=== PATIENT | male | born 1965 | race Caucasian/White ===

== ENCOUNTER → 2018-06-03 06:21 | Outpatient (CLI) | payer OTHER, SELFPAY | PROVIDERS: Family Provider Family Medicine; PCP Family Medicine; Visit Provider Family Medicine | DX: S86.011A Strain of right Achilles tendon, initial encounter (principal); X58.XXXA Exposure to other specified factors, initial encounter; Y93.9 Activity, unspecified; Y92.9 Unspecified place or not applicable; Y99.9 Unspecified external cause status | CPT/HCPCS: 73721 ==

== ENCOUNTER → 2019-12-15 12:20 | Outpatient (CLI) | payer OTHER, SELFPAY ==
[2014-10-02 10:40] VITALS: BMI 27.6
--- NOTE | 2019-12-15 12:42 | RAD_ITS ---
STUDY: X-RAY CHEST REASON FOR EXAM: Male, 53 years old. Pre-op for Achilles surgery TECHNIQUE: PA and lateral views of the chest. COMPARISON: None. FINDINGS: The lungs are clear and expanded. There is no demonstrated pleural abnormality. Normal size heart. Normal mediastinum and carolee. Normal visualized pulmonary arteries. Normal visualized aortic arch and descending thoracic aorta. Normal visualized thoracic spine. Normal visualized ribs, clavicles, and shoulders. There is no demonstrated abnormality of the visualized soft tissue structures of the upper abdomen. RAD/Chest PA and Lateral IMPRESSION: Normal x-ray examination of the chest. Electronically Signed: Augie Montalvo MD at 10:50 EST , Service support ,
--- NOTE | 2019-12-15 13:05 | EKG12_ITS ---
Test Reason : PRE-OP Blood Pressure : / mmHG Vent. Rate : 068 BPM Atrial Rate : 068 BPM P-R Int : 150 ms QRS Dur : 082 ms QT Int : 396 ms P-R-T Axes : 032 001 014 degrees QTc Int : 421 ms Normal sinus rhythm Minimal voltage criteria for LVH, may be normal variant Borderline ECG Confirmed by DEBBIE JAMES, SHAHEEN ([id number]), editor at large JENAE MACK ([id number]) on 12/16/2019 1:41:53 PM Referred By: Armando Alcaraz Confirmed By:SHAHEEN LEWIS MD
[2019-12-15 13:11] LABS: Absolute Lymphocyte Count 1.32 X10^3/uL (0.83-4.51); Absolute Neutrophil Count 4.6 X10^3/uL (2.0-7.7); Basophil# 0.06 X10^3/uL; Basophil% 0.9 % (0-1); Eosinophil# 0.08 X10^3/uL; Eosinophils% 1.2 % (0-5); Hematocrit 45.6 % (40-54); Hemoglobin 15.3 g/dL (13.0-16.5); Lymphocyte # 1.32 X10^3/ul (4.0); Lymphocyte % 20.4 % (19-41); Mean Corp Hgb Conc 33.6 g/dL (32-36); Mean Corpuscular Hgb 29.3 pg (27.0-32.0); Mean Corpuscular Volume 87.2 fL (80-94); Mean Platelet Vol. 9.3 fl (6.2-12.0); Monocyte# 0.42 X10^3/uL; Monocyte% 6.5 % (0-10); NRBC Flagged by Analyzer 0 % (0-5); Neutrophil # 4.57 X10^3/uL (2.7-7.7); Neutrophil % 70.8 % (47-70); Platelet Count 252 K/mm3 (150-450); RBC Distribution Width CV 12.4 % (11.6-14.6); RBC Distribution Width SD 39.5 fl (35.1-43.9); Red Blood Count 5.23 M/mm3 (4.6-6.2); White Blood Count 6.5 K/mm3 (4.4-11.0)
[2019-12-15 13:32] LABS: Anion Gap 2 (5-15); BUN 23 mg/dL (7-18); BUN/Creat Ratio 20.2 RATIO (10-20); Calcium,Total 9.1 mg/dL (8.5-10.1); Chloride 111 mmol/L (98-107); Creatinine, Serum 1.14 mg/dL (0.70-1.30); EST Glomerular Filtration Rate 71 mL/min (>60); Est Glom Filt Rate - Afr Amer 86 mL/min (>60); Glucose 83 mg/dL (74-106); Potassium 3.9 mmol/L (3.5-5.1); Sodium Level 143 mmol/L (136-145)
[2019-12-15 13:48] LABS: Hemoglobin A1c 5.4 % (4.2-6.3)
== END ==
PROVIDERS: PCP Family Medicine; Referring Provider Podiatrist Foot & Ankle Surgery; Visit Provider Podiatrist Foot & Ankle Surgery
DX: Z01.818 Encounter for other preprocedural examination (principal); Z01.810 Encounter for preprocedural cardiovascular examination; Z01.811 Encounter for preprocedural respiratory examination; E11.9 Type 2 diabetes mellitus without complications
CPT/HCPCS: 36415; 71046; 80048; 83036; 85025; 85610; 85730; 93005

== ENCOUNTER → 2019-12-24 | Outpatient (CLI) | payer OTHER, SELFPAY ==
[2014-10-02 10:40] VITALS: BMI 27.6
--- NOTE | 2019-12-24 | TESH_PTH ---
PATIENT: JULIA BARLOW [facility]: [facility] U#:[id number] AGE/SX: 53/M ROOM: RE12/24/[address]: Dr. Armando Alcaraz DPM : 1965 BED: DIS: 12/24/2019 SPEC #: [id number] RECD: 12/24/19 15:25 STATUS: ALOK JUAN M #: [id number] LINDA: 12/24/19 00:[address]: Armando Alcaraz DEPT: SURGICAL PATHOLOGY RECD BY: Nii Castanon ENTERED: 12/25/19 07:43 SP TYPE: TENDON OTHR DR: Dr. Arsh Archer MD [facility] Tissues: Tendon and tendon sheath, NOS Procedures: Surgery Specimen Level III HEADER OPERATION: Right gastrocnemius resection with repair PRE-OP DIAGNOSIS: Chronic degenerated Achilles tendon, right foot; right Achilles tendinosis TISSUE SUBMITTED: Achilles tendon right foot MICROSCOPIC DIAGNOSIS Achilles tendon right foot: Pieces of dense fibroconnective tissue and skeletal muscle tissue with reactive changes. VERONICA:lizette 12/28/19 MICROSCOPIC DESCRIPTION Slides are reviewed. GROSS DESCRIPTION Received in fixative is one container labeled with the patient's name and designated right Achilles tendon. The specimen consists of multiple irregular fragments of white-light mace soft tissue that in aggregate measure 5 x 3 x 0.2 cm. The specimen is totally submitted in one cassette. / AM:lizette 12/25/19 TC:5 CPT: 21802
== END | disposition home or self-care (01) ==
LOC: LABSPEC 15:47
PROVIDERS: PCP Family Medicine; Referring Provider Podiatrist Foot & Ankle Surgery; Visit Provider Podiatrist Foot & Ankle Surgery
DX: M76.61 Achilles tendinitis, right leg (principal)
CPT/HCPCS: 88304

== ENCOUNTER → 2020-01-01 14:22 | Outpatient (CLI) | payer OTHER, SELFPAY ==
--- NOTE | 2020-01-01 14:28 | VDLE_ITS ---
Reason For Study: Pain RLE RIGHT GSV is normal. CFV is compressible, spontaneous, phasic, competent and demonstrates normal augmentation. FV is compressible, spontaneous, phasic, competent and demonstrates normal augmentation. POP V is compressible, spontaneous, phasic, competent and demonstrates normal augmentation. T/P Trunk is compressible. PTV is compressible. RT PerV is compressible. Procedure Exam performed in department. A preliminary report was called and/or faxed to [facility]. Interpretation Summary Deep veins of the right lower extremity are patent and compressible segmentally. There is no evidence of right lower extremity deep vein thrombosis. Valvular competence appears intact within the proximal deep venous system on the right . The right great saphenous vein appears patent and compressible segmentally. Ordering Physician: Magali Griffiths Referring Physician: Arsh Archer MD Performed By: Leonila Leblanc RVT
== END ==
PROVIDERS: PCP Family Medicine; Referring Provider Registered Nurse; Visit Provider Registered Nurse
DX: M79.661 Pain in right lower leg (principal)
CPT/HCPCS: 93971

== ENCOUNTER → 2020-12-27 06:54 | Outpatient (CLI) | payer OTHER, SELFPAY ==
[2020-11-30 16:03] VITALS: BMI 27.4
--- NOTE | 2020-12-27 06:59 | ECHOD_ITS ---
Reason For Study: HTN Procedure This was a 2D Doppler, Color Flow transthoracic echocardiogram. Exam performed in department. Left Ventricle Normal LV size. Left ventricular systolic function is normal. The estimated ejection fraction is 65 %. Normal diastology for age. No regional wall motion abnormalities noted. Right Ventricle Normal size and thickness. Normal systolic function. Atria Normal left atrium. Normal right atrium. Mitral Valve Normal mitral valve. Tricuspid Valve Normal tricuspid valve. Aortic Valve Normal aortic valve. Trisinus/trileaflet aortic valve. Pulmonic Valve Normal pulmonic valve. Great Vessels Normal aortic root. The pulmonary artery is normal size. Inferior vena cava collapse with sniff. Pericardium/Pleural No pericardial effusion. MMode/2D Measurements & Calculations LVIDd: 4.7 cm IVSd: 1.0 cm Ao root diam: 3.2 cm LVIDs: 2.9 cm LVPWd: 0.90 cm RVDd: 3.8 cm FS: 38.1 % LAV(MOD-bp): 49.8 ml EDV(MOD-sp4): 108.1 ml EDV(MOD-sp2): 112.3 ml LAV(MOD-bp) Indexed: 22.3 ml/m2 ESV(MOD-sp4): 43.1 ml EF(MOD-sp2): 60.4 % LAV(MOD-sp2): 48.9 ml EF(MOD-sp4): 60.2 % LAV(MOD-sp4): 49.7 ml SV(MOD-sp4): 65.0 ml SV(MOD-sp2): 67.8 ml LA A4 area: 18.5 cm2 LA dimension(2D): 4.0 cm RA A4 area: 14.3 cm2 Doppler Measurements & Calculations MV E max bean: 59.9 cm/sec Lat Peak E' Bean: 17.5 cm/sec Med Peak E' Bean: 6.9 cm/sec MV A max bean: 49.9 cm/sec E/E' lat: 3.4 E/E' med: 8.7 MV E/A: 1.2 Ao V2 max: 129.9 cm/sec LV V1 max: 98.6 cm/sec PA V2 max: 102.9 cm/sec Ao max P.8 mmHg LV V1 max P.9 mmHg TR max bean: 195.4 cm/sec TR max P.3 mmHg Interpretation Summary Normal LV size. Left ventricular systolic function is normal. The estimated ejection fraction is 65 %. Normal diastology for age. Structurally normal valves. Ordering Physician: Rick Burgos Referring Physician: Arsh Archer MD Performed By: Vicky Calix LAURIE
--- NOTE | 2020-12-27 15:40 | STRESSREP ---
Stress Test Report Exercise myocardial perfusion stress test. 55-year-old male with a history of hypertension and chest pain. Medications: Lisinopril. Stress protocol: Resting EKG demonstrates sinus bradycardia with a rate of 55 bpm normal intervals are noted resting blood pressure is 128/82 mmHg. The patient exercised according to regular Hal protocol for a total duration of 10 minutes and 35 seconds. Patient completed 1 minute and 35 seconds to stage IV of the Hal protocol. The maximum heart rate attained was 153 bpm which was 92% of maximum predicted heart rate the maximum workload was 12.7 metabolic equivalents. At rest there were no ST or T wave changes noted suggest ischemia at peak exercise upsloping ST changes were noted with no meet the criteria for ischemia. The test was terminated due to the target heart rate being achieved. The peak blood pressure was 170/76 mmHg. There was good blood pressure response to exercise. Myocardial perfusion protocol. 12.0 mCi of technetium 99m sestamibi was injected at rest. The patient exercised according to regular Hal protocol for 10-1/2 minutes and at peak exercise 35.2 mCi of technetium 99m sestamibi was injected stress images were obtained stress and rest images were reconstructed and compared in the short axis vertical long horizontal long axis. Gated images were also obtained Perfusion SPECT analysis: Review of the stress images demonstrate normal uptake of tracer noted in all areas of the myocardium the resting images similarly demonstrate normal uptake of tracer noted in all areas of myocardium. No areas of reversibility are noted suggest ischemia no previous infarct is noted. Gated SPECT analysis: The gated ejection fraction is 65%. Conclusion: Normal exercise myocardial perfusion stress test at a high workload. Preserved ejection fraction.
== END ==
PROVIDERS: PCP Family Medicine; Referring Provider Internal Medicine Cardiovascular Disease; Visit Provider Internal Medicine Cardiovascular Disease
DX: R03.0 Elevated blood-pressure reading, without diagnosis of hypertension (principal)
CPT/HCPCS: 78452; 93017; 93306; A9500; A4216

== ENCOUNTER 2021-06-27 11:57 | Emergency (ER) | payer OTHER, SELFPAY ==
[2021-06-27 11:58] VITALS: BP 121/81; PULSE 97; RESP 16; TEMP 37.2; O2SAT 100; BMI 28.0
--- NOTE | 2021-06-27 12:23 | RAD_ITS ---
STUDY: X-RAY CHEST REASON FOR EXAM: Male, 55 years old. SOB TECHNIQUE: Single AP portable view of the chest. COMPARISON: Comparison is made with prior study 12/15/2019. FINDINGS: There now is evidence of a focal bilateral alveolar infiltrates more prominent on the right side. There is no demonstrated pleural abnormality. Normal size heart. Normal mediastinum and carolee. Normal visualized pulmonary arteries. Normal visualized aortic arch and descending thoracic aorta. Normal visualized thoracic spine. Normal visualized ribs, clavicles, and shoulders. There is no demonstrated abnormality of the visualized soft tissue structures of the upper abdomen. RAD/Chest 1 View (Portable) IMPRESSION: Focal bilateral alveolar infiltrates more prominent in the right hemithorax. Covid pneumonitis should be ruled out. Electronically Signed: Gavino Torres MD at 12:56 EDT , Service support ,
--- NOTE | 2021-06-27 13:05 | EX.ED.DYSGE1 ---
HPI History of Present Illness Chief Complaint: General Illness Narrative Narrative: 55-year-old male presenting with chills, body aches, nausea, low-grade fevers. He states he is been sick since last Saturday. He was traveling to [place] when he became ill. He was able to drive back home. Patient is not having any chest pain or shortness of breath. He called his primary care doctor to get a referral for monoclonal antibodies and he was sent to the ER instead. PFSH PFS Medical History Asthma Hypertension Seasonal allergies Home Medications lisinopril 10 mg tablet 10 mg PO DAILY #90 tab 11/30/20 [Rx Last Taken 06/27/21] ondansetron 4 mg PO Q8H PRN PRN #20 tab 06/27/21 [Rx Last Taken Unknown] Allergy/AdvReac Type Severity Reaction Status Date / Time No Known Allergies Allergy Verified 06/27/21 12:00 Family History Grandmother Heart disease Myocardial infarction, Onset Age: 70 Surgical History History of ankle surgery History of herniorrhaphy Social History Smoking Status: Never smoker alcohol intake: never substance use type: does not use caffeine: Yes (3 weekly) Type: carbonated beverages what type of physical activity do you participate in: other details: physical job ROS ROS ED Constitutional Constitutional ED: Reports chills and fever(s) Eyes Eyes: Denies blurry vision or change in vision ENT ENT ED: Reports rhinorrhea and sore throat Cardiovascular Cardiovascular: Denies chest pain or palpitations Respiratory/Chest Respiratory/Chest: Reports cough; Denies sputum Gastrointestinal Gastrointestinal: Reports nausea; Denies abdominal pain, diarrhea or vomiting Genitourinary Genitourinary ED: Denies dysuria or hematuria Musculoskeletal Musculoskeletal: Reports myalgias; Denies arthralgias or neck pain Integumentary Denies Abrasions or rash Neurologic Neurologic: Reports headache(s); Denies paresthesias or weakness EXAM Physical Exam Const Vital Signs: 06/27/21 11:58 06/27/21 12:19 Temperature 99 F Temperature Source Temporal Pulse Rate 97 Respiratory Rate 16 Respiratory Effort Normal Non-Labored Respiratory Pattern Normal Blood Pressure 121/81 H Blood Pressure Mean 94 Pulse Ox 100 Oxygen Delivery Method Room Air Positive well nourished General Appearance ED: MARSHA CR Reports moist mucous membranes Negative for trauma Eyes PERRL and EOMs intact bilaterally Cardio regular rate and regular rhythm Extremity normal to inspection General Extremety ED: Negative for edema or tenderness General Extremity: Negative for edema Neuro oriented x3, CN's II-XII intact bilaterally and no sensory deficits noted Sensorium / Orientation: alert Motor Exam: strength 5/5 throughout Psych mental status grossly normal Skin no rashes or lesions noted MDM MDM MDM Narrative Medical decision making narrative: Patient presenting with a positive COVID-19 test result from Saturday. He wants a referral to get monoclonal antibodies. I did obtain a chest x-ray which on my interpretation shows bilateral pulmonary infiltrates consistent with COVID-19. The radiologist agree. Patient's O2 sat is 100%. Respirate 16. Pulse is 97. He is not having any chest pain and is not hypoxic. He did request some Zofran because he has been nauseous. I will supply him with a prescription for this. He is counseled to stay hydrated and alternate Tylenol and ibuprofen. We will follow up outpatient for monoclonal antibodies. Impression: 1. COVID-19 pneumonitis Radiography Diagnostic Testing: Radiology Impression Chest X-Ray 06/27/21 12:23 IMPRESSION: Focal bilateral alveolar infiltrates more prominent in the right hemithorax. Covid pneumonitis should be ruled out. Electronically Signed: Gavino Torres MD at 12:56 EDT , Service support , Discharge Plan Triage Chief Complaint: General Illness ED Provider: George Helms Dx/Rx/DC Orders Clinical Impression: COVID-19 Instructions: Coronavirus Disease 2019 (COVID-19): Caring for Yourself or Others Prescriptions: New ondansetron 4 mg tablet,disintegrating 4 mg PO Q8H PRN PRN (Reason: Nausea) Qty: 20 RF: 0 No Action lisinopril 10 mg tablet 10 mg PO DAILY Qty: 90 RF: 3 Other Ambulatory Orders: COVID Outpatient Monoclonal Antibody Referral (Routine) Timeframe: 1 Day Facility: [facility] - Location: [facility] Ordered By: Dr. George Helms Primary Care Provider: Arsh Archer Referrals: Arsh Archer MD [Primary Care Provider] - Disposition Disposition: Home, Self Care
[2021-06-27] MEDS: Ondansetron ODT 4 MG Tablet PO (13:18)
[2021-06-27 13:23] VITALS: BP 135/77; PULSE 62; RESP 15; O2SAT 97
== END 2021-06-27 13:24 | disposition home or self-care (01) ==
LOC: ED 13:11
PROVIDERS: Emergency Provider Student in an Organized Health Care Education/Training Program; PCP Internal Medicine
DX: U07.1 COVID-19 (principal); J12.82 Pneumonia due to coronavirus disease 2019; I10 Essential (primary) hypertension; Z79.899 Other long term (current) drug therapy
CPT/HCPCS: 71045; 99283

== ENCOUNTER 2021-06-28 14:15 | Outpatient (CLI) | payer OTHER, SELFPAY ==
[2021-06-28] MEDS: 0.9% Saline Lock 10 ML Syringe IV (14:57)
[2021-06-28 15:03] VITALS: BP 118/72; PULSE 98; RESP 16; TEMP 37.7; O2SAT 98; BMI 27.4
[2021-06-28 15:30] VITALS: BP 129/71; PULSE 84; RESP 16; TEMP 37.1; O2SAT 98
[2021-06-28 16:30] VITALS: BP 131/72; PULSE 83; RESP 16; TEMP 37.2
== END 2021-06-28 16:30 | disposition home or self-care (01) ==
LOC: MS2OUT 14:15 → MS2 14:16
PROVIDERS: PCP Internal Medicine; Visit Provider Physician Assistant
DX: U07.1 COVID-19 (principal)
CPT/HCPCS: J7050; M0243; A4216; Q0244

== ENCOUNTER 2021-12-29 07:22 | Outpatient (CLI) | payer OTHER, SELFPAY ==
[2021-12-29 08:20] LABS: AST(SGOT) 22 U/L (15-37); Alanine Aminotransfer ALT/SGPT 42 U/L (16-61); Albumin, Serum 4.1 g/dL (3.2-5.0); Alkaline Phosphatase 71 U/L (45-117); Anion Gap 0 (5-15); BUN 26 mg/dL (7-18); BUN/Creat Ratio 21.3 RATIO (10-20); Bilirubin, Direct 0.29 mg/dL (0.00-0.30); Calcium,Total 9.2 mg/dL (8.5-10.1); Chloride 109 mmol/L (98-107); Cholesterol 187 mg/dL (200); Creatinine, Serum 1.22 mg/dL (0.70-1.30); EST Glomerular Filtration Rate 65 mL/min (>60); Est Glom Filt Rate - Afr Amer 79 mL/min (>60); Globulin 3.3 g/dL (2.2-4.2); Glucose 111 mg/dL (74-106); High Density Lipoprotein 35 mg/dL; Potassium 4.6 mmol/L (3.5-5.1); Protein, Total 7.4 g/dL (6.4-8.2); Sodium Level 139 mmol/L (136-145); Triglycerides 132 mg/dL; Very Low Density Lipoprotein 26 mg/dL (5-40)
== END 2021-12-29 23:59 | disposition home or self-care (01) ==
LOC: LAB 07:24
PROVIDERS: PCP Internal Medicine; Referring Provider Nurse Practitioner Family; Visit Provider Nurse Practitioner Family
DX: I10 Essential (primary) hypertension (principal); Z82.49 Family history of ischemic heart disease and other diseases of the circulatory system
CPT/HCPCS: 36415; 80048; 80061; 80076

== ENCOUNTER → 2022-02-02 | Outpatient (CLI) | payer OTHER, SELFPAY | END | disposition home or self-care (01) | LOC: BIMLAB 08:30 | PROVIDERS: PCP Internal Medicine; Referring Provider Internal Medicine; Visit Provider Internal Medicine | DX: Z12.5 Encounter for screening for malignant neoplasm of prostate (principal) | CPT/HCPCS: 36415; 84153; G0103 ==

== ENCOUNTER → 2023-01-01 | Outpatient (CLI) | payer OTHER, SELFPAY ==
[2023-01-01 11:02] LABS: AST(SGOT) 22 U/L (15-37); Alanine Aminotransfer ALT/SGPT 40 U/L (16-61); Albumin, Serum 3.8 g/dL (3.2-5.0); Alkaline Phosphatase 79 U/L (45-117); Bilirubin, Direct 0.17 mg/dL (0.00-0.30); Cholesterol 183 mg/dL (200); Globulin 3.3 g/dL (2.2-4.2); High Density Lipoprotein 32 mg/dL; Protein, Total 7.1 g/dL (6.4-8.2); Triglycerides 181 mg/dL; Very Low Density Lipoprotein 36 mg/dL (5-40)
== END | disposition home or self-care (01) ==
LOC: LAB 09:54
PROVIDERS: PCP Internal Medicine; Referring Provider Internal Medicine Cardiovascular Disease; Visit Provider Internal Medicine Cardiovascular Disease
DX: I10 Essential (primary) hypertension (principal); E78.00 Pure hypercholesterolemia, unspecified
CPT/HCPCS: 36415; 80061; 80076

== ENCOUNTER → 2024-06-23 | Outpatient (CLI) | payer OTHER, SELFPAY ==
[2024-06-23 08:45] LABS: Absolute Lymphocyte Count 1.68 X10^3/uL (0.83-4.51); Basophil# 0.07 X10^3/uL; Basophil% 0.9 % (0-1); Eosinophil# 0.15 X10^3/uL; Hematocrit 43.3 % (40-54); Hemoglobin 14.5 g/dL (13.0-16.5); Lymphocyte # 1.68 X10^3/ul (0.83-4.51); Lymphocyte % 22.3 % (19-41); Mean Corp Hgb Conc 33.5 g/dL (32-36); Mean Corpuscular Hgb 29.1 pg (27.0-32.0); Mean Corpuscular Volume 86.9 fL (80-94); Mean Platelet Vol. 9.3 fl (6.2-12.0); Monocyte% 6.6 % (0-10); NRBC Flagged by Analyzer 0 % (0-5); Neutrophil # 5.01 X10^3/uL (2.7-7.7); Neutrophil % 66.6 % (47-70); Platelet Count 233 K/mm3 (150-450); RBC Distribution Width CV 12.2 % (11.6-14.6); RBC Distribution Width SD 38.6 fl (35.1-43.9); Red Blood Count 4.98 M/mm3 (4.6-6.2); White Blood Count 7.5 K/mm3 (4.4-11.0)
[2024-06-23 09:45] LABS: ALB/GLOB Ratio 1.1 RATIO (0.9-2.4); AST(SGOT) 16 U/L (15-37); Alanine Aminotransfer ALT/SGPT 27 U/L (16-61); Albumin, Serum 3.6 g/dL (3.2-5.0); Alkaline Phosphatase 77 U/L (45-117); Anion Gap 7 (5-15); BUN 23 mg/dL (7-18); BUN/Creat Ratio 18.4 RATIO (10-20); Calcium,Total 8.9 mg/dL (8.5-10.1); Chloride 110 mmol/L (98-107); Cholesterol 195 mg/dL (200); Creatinine, Serum 1.25 mg/dL (0.70-1.30); EST Glomerular Filtration Rate 63 mL/min (>60); Est Glom Filt Rate - Afr Amer 76 mL/min (>60); Globulin 3.4 g/dL (2.2-4.2); Glucose 106 mg/dL (74-106); High Density Lipoprotein 35 mg/dL; PSA,Total - Annual Screen 0.85 ng/mL (0.00-4.00); Potassium 4.1 mmol/L (3.5-5.1); Sodium Level 140 mmol/L (136-145); Triglycerides 159 mg/dL; Very Low Density Lipoprotein 32 mg/dL (5-40)
== END | disposition home or self-care (01) ==
LOC: LAB 08:02
PROVIDERS: PCP Internal Medicine; Referring Provider Internal Medicine; Visit Provider Internal Medicine
DX: Z00.00 Encounter for general adult medical examination without abnormal findings (principal); Z13.220 Encounter for screening for lipoid disorders; Z12.5 Encounter for screening for malignant neoplasm of prostate; I10 Essential (primary) hypertension; J30.2 Other seasonal allergic rhinitis; E55.9 Vitamin D deficiency, unspecified
CPT/HCPCS: 36415; 80053; 80061; 82306; 84153; 84443; 85025; G0103

== ENCOUNTER → 2025-10-04 | Outpatient (CLI) | payer OTHER, SELFPAY ==
[2025-10-04 09:47] LABS: Hematocrit 45.2 % (40-54); Hemoglobin 15.4 g/dL (13.0-16.5); Immature Granulocytes Count 0.040 X10^3/uL (0.0-0.0); Mean Corp Hgb Conc 34.1 g/dL (32-36); Mean Corpuscular Volume 87.9 fL (80-94); Mean Platelet Vol. 9.4 fl (6.2-12.0); NRBC Flagged by Analyzer 0 % (0-5); Platelet Count 255 K/mm3 (150-450); RBC Distribution Width CV 12.5 % (11.6-14.6); RBC Distribution Width SD 40.1 fl (35.1-43.9); Red Blood Count 5.14 M/mm3 (4.6-6.2); White Blood Count 7.2 K/mm3 (4.4-11.0)
--- OUTSIDE RECORDS SUMMARY | 2025-10-04 10:13 | XMS RPT_ITS | CCD ---
Author Organization [facility] Care Team Providers Care Catalog Specialist Name Role Phone Dr. 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 Kinga Patton Primary Care Provider Dr. Kinga Patton Attending Provider 1([facility])[phone] Dr. Kinga Patton Primary Care Provider Dr. Kinga Patton Referring Provider 1([facility])[phone] Dr. Rick Burgos Attending Provider Kinga Patton Attending Unavailable Kinga Patton Primary Care Unavailable Kinga Patton Referring Unavailable Kinga Patton Attending Unavailable Kinga Patton Primary Care Unavailable Medications Current Medications Medication Drug Class(es) Dates Sig (Normalized) Sig (Original) Ascorbic Acid (3 sources) Vitamin C Start: 11-30-2021 take 1 g by mouth once daily Ascorbic Acid (Vitamin C) Active 1 GM PO DAILY November 30, 2021 10:27am Start: 11-30-2021 take 1 g by mouth once daily A scorbic Acid (Vitamin C) Active 1 GM PO DAILY November 30, 2021 1:00am cholecalciferol 0.025 mg oral tablet (3 sources) Vitamin D Start: 11-30-2021 take 25 ug by mouth once daily Cholecalciferol (Vitamin D3) Active 25 MCG PO DAILY November 30, 2021 10:27am Zinc (3 sources) Start: 11-30-2021 take 50 mg by mouth once daily Zinc Active 50 MG PO DAILY November 30, 2021 10:27am Start: 11-30-2021 take 50 mg by mouth once daily Zinc Active 50 MG PO DAILY November 30, 2021 1:00am Completed/Discontinued Medications Medication Drug Class(es) Dates Sig (Normalized) Sig (Original) amoxicillin 875 mg / clavulanate 125 mg oral tablet (3 sources) Penicillin-class Antibacterial Start: 10-02-2014 End: 11-30-2020 take 875 mg by mouth every twelve hours Amoxicillin-Pot Clavulanate Discontinued 875 MG PO Q12H October 02, 2014 12:24pm November 30, 2020 5:03pm dexamethasone 6 mg oral tablet (3 sources) Corticosteroid Start: 06-28-2021 End: 11-30-2021 take 1 tablet by mouth once daily Dexamethasone (Decadron) 6 mg tablet Discontinued 6 MG PO DAILY June 28, 2021 8:58am November 30, 2021 10:26am ibuprofen 200 mg oral tablet (3 sources) Nonsteroidal Anti-inflammatory Drug Start: 06-28-2021 End: 11-30-2021 take 1 tablet by mouth every six hours Ibuprofen (Advil) 200 mg tablet Discontinued 200 MG PO EVERY 6 HOURS June 28, 2021 10:21am November 30, 2021 10:26am lisinopril 10 mg oral tablet (10 sources) Angiotensin Converting Enzyme Inhibitor Start: 11-30-2020 End: 11-28-2022 take 10 mg by mouth once daily Lisinopril Discontinued 10 MG PO DAILY November 24, 2021 9:57am November 30, 2021 10:50am ondansetron 4 mg disintegrating oral tablet (3 sources) Serotonin-3 Receptor Antagonist Start: 06-27-2021 End: 11-30-2021 take 4 mg by mouth every eight hours as needed Ondansetron Discontinued 4 MG PO EVERY 8 HOURS NEEDED June 27, 2021 12:45pm November 30, 2021 10:26am Problems Problem Classification Problem Date Documented Da te Episodic/Chronic Cardiac dysrhythmias (3 sources) Palpitations - rapid; Translations: [Palpitations] 11-30-2020 Episodic Essential hypertension (12 sources) Hypertensive disorder; Translations: [Essential (primary) hypertension] Onset: 07-14-2024 Chronic Immunizations and screening for infectious disease (3 sources) Patient encounter status; Translations: [Encounter for screening for COVID-19] 12-31-2022 Episodic Nonspecific chest pain (3 sources) Chest pain; Translations: [Chest pain, unspecified] 11-30-2020 Episodic Other circulatory disease (3 sources) Elevated blood-pressure reading without diagnosis of hypertension; Translations: [Elevated blood-pressure reading, without diagnosis of hypertension] 12-31-2022 Episodic Other nutritional; endocrine; and metabolic disorders (1 source) Body mass index 25-29 - overweight; Translations: [Body mass index (BMI) 26.0-26.9, adult] Episodic Other nutritional; endocrine; and metabolic disorders (2 sources) Overweight in adulthood with body mass index of 25 or more but less than 30; Translations: [Body mass index (BMI) 26.0-26.9, adult] 06-28-2021 Episodic Other nutritional; endocrine; and metabolic disorders (1 source) Body mass index (BMI) 26.0-26.9, adult; Translations: [Body Mass Index 26.0-26.9, adult] Episodic Other upper respiratory disease (3 sources) Seasonal allergy; Translations: [Other seasonal allergic rhinitis] 01-19-2021 Chronic Other upper respiratory disease (1 source) Other seasonal allergic rhinitis; Translations: [Other seasonal allergic rhinitis] Onset: 06-22-2024 Chronic Residual codes; unclassified (3 sources) Family history of coronary arteriosclerosis; Translations: [Family history of ischemic heart disease and other diseases of the circulatory system] 12-31-2022 Episodic Residual codes; unclassified (3 sources) Family history of ischemic heart disease and other diseases of the circulatory system; Translations: [Family history of ischemic heart disease] Episodic Viral infection (3 sources) Disease caused by 2019-nCoV; Translations: [COVID-19] 12-31-2022 Episodic Results Test Name Value Interpretation Reference Range Facility CBC W/Diff, Automatedon 06-14 Absolute Lymph 1.68 X10 3/uL Normal 0.83-4.51 [facility] Comment on above: Performed By: #### L 501.9910, L100.0100, L500.4050, L500.4100, L506.1000, L501.9520 #### [facility] [address] [place], [address] Absolute Neut 5.0 X10 3/uL Normal 2.0-7.7 [facility] Comment on above: Performed By: #### L 501.9910, L100.0100, L500.4050, L500.4100, L506.1000, L501.9520 #### [facility] [address] [place], [address] Basophils/100 WBC (Bld) 0.9 % Normal 0-1 [facility] Comment on above: Performed By: #### L 501.9910, L100.0100, L500.4050, L500.4100, L506.1000, L501.9520 #### [facility] [address] [place], [address] Eosinophils/100 WBC (Bld) 2.0 % Normal 0-5 [facility] Comment on above: Performed By: #### L 501.9910, L100.0100, L500.4050, L500.4100, L506.1000, L501.9520 #### [facility] [address] [place], [address] Erythrocyte distribution width (RBC) [Ratio] 12.2 % Normal 11.6-14.6 [facility] Comment on above: Performed By: #### L 501.9910, L100.0100, L500.4050, L500.4100, L506.1000, L501.9520 #### [facility] [address] [place], [address] Hematocrit (Bld) [Volume fraction] 43.3 % Normal 40-54 [facility] Comment on above: Performed By: #### L 501.9910, L100.0100, L500.4050, L500.4100, L506.1000, L501.9520 #### [facility] [address] [place], [address] Hemoglobin (Bld) [Mass/Vol] 14.5 g/dL Normal 13.0-16.5 [facility] Comment on above: Performed By: #### L 501.9910, L100.0100, L500.4050, L500.4100, L506.1000, L501.9520 #### [facility] [address] [place], [address] IG% 1.600 High 0.0-0.9 [facility] Comment on above: Result Comment: IG% - Immature Granulocytes (promyelocytes, myelocytes and metamyelocytes) > 1% indicates that a LEFT SHIFT is Present. Performed By: #### L 501.9910, L100.0100, L500.4050, L500.4100, L506.1000, L501.9520 #### [facility] [address] [place], [address] Lymphocytes/100 WBC (Bld) 22.3 % Normal 19-41 [facility] Comment on above: Performed By: #### L 501.9910, L100.0100, L500.4050, L500.4100, L506.1000, L501.9520 #### [facility] [address] [place], [address] MCH (RBC) [Entitic mass] 29.1 pg Normal 27.0-32.0 [facility] Comment on above: Performed By: #### L 501.9910, L100.0100, L500.4050, L500.4100, L506.1000, L501.9520 #### [facility] [address] [place], [address] MCHC (RBC) [Mass/Vol] 33.5 g/dL Normal 32-36 [facility] Comment on above: Performed By: #### L 501.9910, L100.0100, L500.4050, L500.4100, L506.1000, L501.9520 #### [facility] [address] [place], [address] MCV (RBC) [Entitic vol] 86.9 fL Normal 80-94 [facility] Comment on above: Performed By: #### L 501.9910, L100.0100, L500.4050, L500.4100, L506.1000, L501.9520 #### [facility] [address] [place], [address] Monocytes/100 WBC (Bld) 6.6 % Normal 0-10 [facility] Comment on above: Performed By: #### L 501.9910, L100.0100, L500.4050, L500.4100, L506.1000, L501.9520 #### [facility] [address] [place], [address] Neutrophils/100 WBC (Bld) 66.6 % Normal 47-70 [facility] Comment on above: Performed By: #### L 501.9910, L100.0100, L500.4050, L500.4100, L506.1000, L501.9520 #### [facility] [address] [place], [address] Nucleated RBC (Bld) [#/Vol] 0 10*3/uL Normal 0-5 [facility] Comment on above: Performed By: #### L 501.9910, L100.0100, L500.4050, L500.4100, L506.1000, L501.9520 #### [facility] [address] [place], [address] Platelet mean volume (Bld) [Entitic vol] 9.3 fL Normal 6.2-12.0 [facility] Comment on above: Performed By: #### L 501.9910, L100.0100, L500.4050, L500.4100, L506.1000, L501.9520 #### [facility] [address] [place], [address] Platelets (Bld) [#/Vol] 233 10*3/uL Normal 150-450 [facility] Comment on above: Performed By: #### L 501.9910, L100.0100, L500.4050, L500.4100, L506.1000, L501.9520 #### [facility] [address] [place], [address] RBC (Bld) [#/Vol] 4.98 10*6/uL Normal 4.6-6.2 [facility] Comment on above: Performed By: #### L 501.9910, L100.0100, L500.4050, L500.4100, L506.1000, L501.9520 #### [facility] [address] [place], [address] RDW SD 38.6 fl Normal 35.1-43.9 [facility] Comment on above: Performed By: #### L 501.9910, L100.0100, L500.4050, L500.4100, L506.1000, L501.9520 #### [facility] [address] [place], [address] WBC (Bld) [#/Vol] 7.5 10*3/uL Normal 4.4-11.0 [facility] Comment on above: Performed By: #### L 501.9910, L100.0100, L500.4050, L500.4100, L506.1000, L501.9520 #### [facility] [address] [place], [address] Comprehensive Metabolic Prof [facility] 06-23-2024 Albumin [Mass/Vol] 3.6 g/dL Normal 3.2-5.0 [facility] Comment on above: Performed By: #### L 501.9910, L100.0100, L500.4050, L500.4100, L506.1000, L501.9520 #### [facility] [address] [place], [address] Albumin/Globulin [Mass ratio] 1.1 {ratio} Normal 0.9-2.4 [facility] Comment on above: Performed By: #### L 501.9910, L100.0100, L500.4050, L500.4100, L506.1000, L501.9520 #### [facility] [address] [place], [address] ALK P 77 U/L Normal 45-117 [facility] Comment on above: Performed By: #### L 501.9910, L100.0100, L500.4050, L500.4100, L506.1000, L501.9520 #### [facility] [address] [place], [address] ALT [Catalytic activity/Vol] 27 U/L Normal 16-61 [facility] Comment on above: Performed By: #### L 501.9910, L100.0100, L500.4050, L500.4100, L506.1000, L501.9520 #### [facility] [address] [place], [address] AST [Catalytic activity/Vol] 16 U/L Normal 15-37 [facility] Comment on above: Performed By: #### L 501.9910, L100.0100, L500.4050, L500.4100, L506.1000, L501.9520 #### [facility] [address] [place], [address] Bilirubin [Mass/Vol] 1.00 mg/dL Normal 0.20-1.00 [facility] Comment on above: Result Comment: For patients on eltrombopag therapy, use of Dimension Nabb TBIL is not recommended. Performed By: #### L 501.9910, L100.0100, L500.4050, L500.4100, L506.1000, L501.9520 #### [facility] [address] [place], [address] BUN/CRE 18.4 RATIO Normal 10-20 [facility] Comment on above: Performed By: #### L 501.9910, L100.0100, L500.4050, L500.4100, L506.1000, L501.9520 #### [facility] [address] [place], [address] CA,Total 8.9 mg/dL Normal 8.5-10.1 [facility] Comment on above: Performed By: #### L 501.9910, L100.0100, L500.4050, L500.4100, L506.1000, L501.9520 #### [facility] [address] [place], [address] Chloride [Moles/Vol] 110 mmol/L High 98-107 [facility] Comment on above: Performed By: #### L 501.9910, L100.0100, L500.4050, L500.4100, L506.1000, L501.9520 #### [facility] [address] [place], [address] CO2 [Moles/Vol] 23.0 mmol/L Normal 21.0-32.0 [facility] Comment on above: Performed By: #### L 501.9910, L100.0100, L500.4050, L500.4100, L506.1000, L501.9520 #### [facility] [address] [place], [address] Creatinine [Mass/Vol] 1.25 mg/dL Normal 0.70-1.30 [facility] Comment on above: Result Comment: The validity of the calculated GFR GFRAA in patients over 70 years has not been determined. Clinical correlation is essential. Performed By: #### L 501.9910, L100.0100, L500.4050, L500.4100, L506.1000, L501.9520 #### [facility] [address] [place], [address] EST GFR - AA 76 mL/min Normal >60 [facility] Comment on above: Result Comment: Afri can Chilean GFR Calc Performed By: #### L 501.9910, L100.0100, L500.4050, L500.4100, L506.1000, L501.9520 #### [facility] [address] [place], [address] GAP 7 Normal 5-15 [facility] Comment on above: Performed By: #### L 501.9910, L100.0100, L500.4050, L500.4100, L506.1000, L501.9520 #### [facility] [address] [place], [address] GFR/1.73 sq M.predicted among non-blacks MDRD (S/P/Bld) [Vol rate/Area] 63 mL/min/{1.73_m2} Normal >60 [facility] Comment on above: Result Comment: Non- GFR Calc Performed By: #### L 501.9910, L100.0100, L500.4050, L500.4100, L506.1000, L501.9520 #### [facility] [address] [place], [address] Globulin (S) [Mass/Vol] 3.4 g/dL Normal 2.2-4.2 [facility] Comment on above: Performed By: #### L 501.9910, L100.0100, L500.4050, L500.4100, L506.1000, L501.9520 #### [facility] [address] [place], [address] Glucose [Mass/Vol] 106 mg/dL Normal 74-106 [facility] Comment on above: Result Comment: Fast ing Glucose result from 100 to 125 mg/dL suggests IMPAIRED HOMEOSTASIS per A.D.A. criteria. Performed By: #### L 501.9910, L100.0100, L500.4050, L500.4100, L506.1000, L501.9520 #### [facility] [address] [place], [address] Potassium [Moles/Vol] 4.1 mmol/L Normal 3.5-5.1 [facility] Comment on above: Performed By: #### L 501.9910, L100.0100, L500.4050, L500.4100, L506.1000, L501.9520 #### [facility] [address] [place], [address] Sodium [Moles/Vol] 140 mmol/L Normal 136-145 [facility] Comment on above: Performed By: #### L 501.9910, L100.0100, L500.4050, L500.4100, L506.1000, L501.9520 #### [facility] [address] [place], [address] T PROT 7.0 g/dL Normal 6.4-8.2 [facility] Comment on above: Performed By: #### L 501.9910, L100.0100, L500.4050, L500.4100, L506.1000, L501.9520 #### [facility] [address] [place], [address] Urea nitrogen [Mass/Vol] 23 mg/dL High 7-18 [facility] Comment on above: Performed By: #### L 501.9910, L100.0100, L500.4050, L500.4100, L506.1000, L501.9520 #### [facility] [address] [place], [address] Lipid Profileon 06-23-2024 Cholesterol [Mass/Vol] 195 mg/dL Normal 200 [facility] Comment on above: Result Comment: <200 mg/dL Desirable 200-240 mg/dL Borderline >240 mg/dL High Risk Performed By: #### L 501.9910, L100.0100, L500.4050, L500.4100, L506.1000, L501.9520 #### [facility] [address] [place], [address] Cholesterol in HDL [Mass/Vol] 35 mg/dL Low [facility] Comment on above: Result Comment: The drugs N-Acetylcysteine and Metamizole may falsely depress this assay. Reference Range HDL <40 mg/dL Low HDL Cholesterol HDL >or= 60 mg/dL High HDL Cholesterol Performed By: #### L 501.9910, L100.0100, L500.4050, L500.4100, L506.1000, L501.9520 #### [facility] [address] [place], [address] Cholesterol in LDL [Mass/Vol] 128 mg/dL Normal 0-130 [facility] Comment on above: Performed By: #### L 501.9910, L100.0100, L500.4050, L500.4100, L506.1000, L501.9520 #### [facility] [address] [place], [address] Cholesterol in VLDL [Mass/Vol] 32 mg/dL Normal 5-40 [facility] Comment on above: Performed By: #### L 501.9910, L100.0100, L500.4050, L500.4100, L506.1000, L501.9520 #### [facility] [address] [place], [address] Triglyceride [Mass/Vol] 159 mg/dL Normal [facility] Comment on above: Result Comment: The drugs N-Acetylcysteine and Metamizole may falsely depress this assay. Serum Triglycerides Reference Interval Normal <150 mg/dL Borderline high 150 - 199 mg/dL High 200 - 499 mg/dL Very High > or = 500 mg/dL Performed By: #### L 501.9910, L100.0100, L500.4050, L500.4100, L506.1000, L501.9520 #### [facility] [address] [place], [address] PSA,Total - Annual Screenon 06-23-2024 PSA,TOT SCREEN 0.85 ng/mL Normal 0.00-4.00 [facility] Comment on above: Result Comment: This test was performed using the TPSA assay method for the [employer] chemistry system. Values obtained with different assay methods cannot be used interchangably. When changing PSA assays in the course of monitoring a patient, additional sequential testing should be carried out to confirm baseline values. Performed By: #### L 501.9910, L100.0100, L500.4050, L500.4100, L506.1000, L501.9520 #### [facility] [address] [place], [address] Thyroid Stim Hormone (TSH)on 06-23-2024 TSH 3.700 uIU/mL Normal 0.358-3.740 [facility] Comment on above: Performed By: #### L 501.9910, L100.0100, L500.4050, L500.4100, L506.1000, L501.9520 #### [facility] [address] [place], [address] Vitamin D,25 Hydroxyon 06-23 Vitamin D 25-OH 31.0 ng/mL Normal [facility] Comment on above: Result Comment: May min D 25(OH) Status Range Deficiency <20 ng/mL (50nmol/L) Insufficiency 20 - 30 ng/mL (50 - 75 nmol/L) Sufficiency 30 - 100 ng/mL (75 - 250 nmol/L) Toxicity >100 ng/mL (>250 nmol/L) Performed By: #### L 501.9910, L100.0100, L500.4050, L500.4100, L506.1000, L501.9520 #### [facility] [address] [place], [address] MR/REGGIE.IMBon 06-22-2024 MR/BMS.IMB [facility] [address] [place] [address] OFFICE VISIT Date of Service: 06/22/24 MR#: [id number] Acct: [id number] Name: JULIA BARLOW Rep #: [id number] : 1965 Provider: Dr. 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 Accompanied by: Self Is patient in pain?: No Allergies No Known Allergies Allergy (Verified 06/22/24 08:56) Medications ???Medication ???Instructions ???Recorded ???Confirmed ???Type ascorbic acid (vitamin C) 1,000 mg 1 g PO DAILY 11/30/21 06/22/24 History tablet cholecalciferol (vitamin D3) 25 25 mcg PO DAILY 11/30/21 06/22/24 History mcg (1,000 unit) tablet zinc 50 mg tablet 50 mg PO DAILY 11/30/21 06/22/24 History lisinopril 10 mg tablet 10 mg PO DAILY #90 tabs 12/16/23 06/22/24 Rx Have you fallen in the past year?: [facility] History (Updated 06/22/24 @ 12:[address] Kinga Patton MD) Annual wellness visit Essential hypertension Family history of coronary arteriosclerosis Encounter for screening for COVID-19 COVID-19 Asthma Seasonal allergies Surgical History History of ankle surgery History of herniorrhaphy Family History Grandmother Heart disease Myocardial infarction, Onset Age: 70 Social History Smoking Status: Never smoker alcohol intake: never substance use type: does not use caffeine: Yes (3 weekly) Type: carbonated beverages what type of physical activity do you participate in: other details: physical job HPI HPI Chief Complaint: physical Details: JULIA BARLOW, is a 58 M who presents to the office today for annual wellness/follow-up. History of hypertension, on low-dose lisinopril 10 mg daily. Otherwise takes couple of different vitamins. Nothing consistent. He is doing well. He does not have any new specific concerning issues. Continues to work for [employer]. He has some avoid he will consider expected aches and pains, given the physical nature of the work that he does. He is planning to perhaps retire, at the end of next year or 59. Overall he feels well and does not have any major issues. Self-admittedly not necessarily always eating well. We spent a fair amount of time discussing dietary nutritional patterns in that context. I continue to emphasize good high-quality diet Mediterranean format as we have discussed previously. Review of systems per chart. He denies any chest pain, shortness of breath, chest tightness with exertion. No nausea or vomiting. Appetite is good. Bowel movements are regular. He had colonoscopy in 2016. I will try and obtain a copy of that. It was reportedly recommended 10-year follow-up. Physical exam. Vital signs on chart. PERRLA. Sclera are clear. TMs are unremarkable with normal light reflexes. Canals are unremarkable. Posterior pharynx is unremarkable. Good dentition. No cervical or supraclavicular lymph nodes enlarged or tender. No clear thyromegaly. No thyroid nodules readily palpable. Lungs are without wheeze, rhonchi, rales. No E/A changes are heard. Heart is regular. Not tachycardic. No clear murmur, rub, or gallop is identified. The abdomen is soft. Bowel sounds are present. Nontender nondistended abdomen. No clear palpable masses in the abdomen. No significant leg edema. Cranial nerve examination 2 through 12 are grossly unremarkable nonlateralizing. Deep tendon reflexes are 2/4 and symmetric at the bicep, tricep, Achilles, patella. No ankle clonus. No obvious rashes. No obvious significant skin lesions are identified. ROS Const Constitutional: No body ache, chills, excessive sweating, fatigue, fever(s), frequent falls, headache(s), snoring, weakness or change in appetite Eyes Eyes: No blurry vision, change in vision, eye pain or Light sensitivity ENT ENT: No abnormal hearing, ear or mastoid pain, tinnitus, nasal congestion, headache(s), neck pain or sore throat Resp Respiratory: No cough, shortness of breath, snoring or wheezing Cardio Cardiology: No chest pain at rest, chest pain with exertion, excessive sweating, dyspnea on exertion, lightheadedness, orthopnea or palpitations Gastro GI: No abdominal pain, change in bowel habits, constipation, cramping, diarrhea, nausea/dyspepsia or (more content not included)... Normal [facility] Basophil percentageOrdered B y: Dr. Burgos on 01-01-2023 Bilirubin [Mass/Vol] 1.00 mg/dL 0.20-1.00 [facility] Comment on above: For patients on eltr ombopag therapy, use of Dimension Nabb TBIL is not recommended. Cholesterol [Mass/Vol] 183 mg/dL <200 [facility] Comment on above: <200 mg/dL Desirable 200-240 mg/dL Borderline >240 mg/dL High Risk Protein [Mass/Vol] 7.1 g/dL 6.4-8.2 [facility] [place] Triglyceride [Mass/Vol] 181 mg/dL <199 [facility] Comment on above: The drugs N-Acetylcy steine and Metamizole may falsely depress this assay.Serum Triglycerides Reference Interval Normal <150 mg/dL Borderline high 150 - 199 mg/dL High 200 - 499 mg/dL Very High > or = 500 mg/dL Direct bilirubinOrdered By: Dr. Burgos on 01-01-2023 Bilirubin.direct [Mass/Vol] 0.17 mg/dL 0.00-0.30 [facility] Laboratory - Chemistry and C hemistry - challengeOrdered By: Dr. Burgos on 01-01-2023 ALP [Catalytic activity/Vol] 79 U/L 45-117 [facility] ALT [Catalytic activity/Vol] 40 U/L 16-61 [facility] Globulin (S) [Mass/Vol] 3.3 g/dL 2.2-4.2 [facility] Serum or plasma albumin elliot urement (mass/volume)Ordered By: Dr. Burgos on 01-01-2023 Albumin [Mass/Vol] 3.8 g/dL 3.2-5.0 [facility] Serum or plasma cholesterol in HDL measurement (mass/volume)Ordered By: Dr. Burgos on 01-01-2023 Cholesterol in HDL [Mass/Vol] 32 mg/dL >40 [facility] Comment on above: The drugs N-Acetylcy steine and Metamizole may falsely depress this assay. Reference Range HDL <40 mg/dL Low HDL Cholesterol HDL >or= 60 mg/dL High HDL Cholesterol Serum or plasma cholesterol in VLDL measurement (mass/volume)Ordered By: Dr. Burgos on 01-01-2023 Cholesterol in VLDL [Mass/Vol] 36 mg/dL 5-40 [facility] Serum or plasma low density lipoprotein (LDL) cholesterol measurement (mass/volume)Ordered By: Dr. Burgos on 01-01-2023 Cholesterol in LDL [Mass/Vol] 115 mg/dL 0-130 [facility] Thin prep Papanicolaou smear with manual screeningOrdered By: Dr. Burgos on 01-01-2023 Thin prep Papanicolaou smear with manual screening 22 U/L 15-37 [facility] No Panel Informationon 02-02 Prostate Specific Antigen Screen 0.70 ng/mL 0.00-4.00 [facility] Work Phone: Comment on above: This test was perfor med using the TPSA assay method for the[facility]. Values obtained with differentassay methods cannot be used interchangably.When changing PSA assays in the course of monitoring apatient, additional sequential testing should be carriedout to confirm baseline values. Basophil percentageon 2021 Bilirubin [Mass/Vol] 1.60 mg/dL 0.20-1.00 [facility] Work Phone: Comment on above: For patients on eltr ombopag therapy, use of Dimension Nabb TBIL is not recommended. Chloride [Moles/Vol] 109 mmol/L 98-107 [facility] Work Phone: Cholesterol [Mass/Vol] 187 mg/dL <200 [facility] Work Phone: Comment on above: <200 mg/dL Desirable 200-240 mg/dL Borderline >240 mg/dL High Risk Glucose [Mass/Vol] 111 mg/dL 74-106 [facility] Work Phone: Comment on above: Fasting Glucose resu lt from 100 to 125 mg/dL suggests IMPAIRED HOMEOSTASIS per A.D.A. criteria. Potassium [Moles/Vol] 4.6 mmol/L 3.5-5.1 [facility] Work Phone: Protein [Mass/Vol] 7.4 g/dL 6.4-8.2 [facility] Work Phone: Sodium [Moles/Vol] 139 mmol/L 136-145 [facility] Work Phone: Triglyceride [Mass/Vol] 132 mg/dL [facility] Work Phone: Comment on above: The drugs N-Acetylcy steine and Metamizole may falsely depress this assay.Serum Triglycerides Reference Interval Normal <150 mg/dL Borderline high 150 - 199 mg/dL High 200 - 499 mg/dL Very High > or = 500 mg/dL Direct bilirubinon 2 Bilirubin.direct [Mass/Vol] 0.29 mg/dL 0.00-0.30 [facility] Work Phone: Laboratory - Chemistry and C hemistry - challengeon 12-29-2021 ALP [Catalytic activity/Vol] 71 U/L 45-117 [facility] Work Phone: ALT [Catalytic activity/Vol] 42 U/L 16-61 [facility] Work Phone: CO2 [Moles/Vol] 30.0 mmol/L 21.0-32.0 [facility] Work Phone: Globulin (S) [Mass/Vol] 3.3 g/dL 2.2-4.2 [facility] Work Phone: Urea nitrogen/Creatinine [Mass ratio] 21.3 mg/mg 10-20 [facility] Work Phone: No Panel Informationon 12-29 Estimated GFR (MDRD) Amer 79 mL/min >60 [facility] Work Phone: Comment on above: GFR Calc Estimated GFR (MDRD) Non-Af Amer 65 mL/min >60 [facility] Work Phone: Comment on above: Non- GFR Calc Serum or plasma albumin elliot urement (mass/volume)on 12-29-2021 Albumin [Mass/Vol] 4.1 g/dL 3.2-5.0 [facility] [place] Work Phone: Serum or plasma calcium elliot urement (mass/volume)on 12-29-2021 Calcium [Mass/Vol] 9.2 mg/dL 8.5-10.1 [facility] [place] Work Phone: Serum or plasma cholesterol in HDL measurement (mass/volume)on 12-29-2021 Cholesterol in HDL [Mass/Vol] 35 mg/dL [facility] Work Phone: Comment on above: The drugs N-Acetylcy steine and Metamizole may falsely depress this assay. Reference Range HDL <40 mg/dL Low HDL Cholesterol HDL >or= 60 mg/dL High HDL Cholesterol Serum or plasma cholesterol in VLDL measurement (mass/volume)on 12-29-2021 Cholesterol in VLDL [Mass/Vol] 26 mg/dL 5-40 [facility] Work Phone: Serum or plasma creatinine m easurement (mass/volume)on 12-29-2021 Creatinine [Mass/Vol] 1.22 mg/dL 0.70-1.30 [facility] Work Phone: Comment on above: The validity of the calculated GFR & GFRAA in patients over 70 years has not been determined. Clinical correlation is essential. Serum or plasma low density lipoprotein (LDL) cholesterol measurement (mass/volume)on 12-29-2021 Cholesterol in LDL [Mass/Vol] 126 mg/dL 0-130 [facility] Work Phone: Serum or plasma urea nitroge n measurement (mass/volume)on 12-29-2021 Urea nitrogen [Mass/Vol] 26 mg/dL -18 [facility] Work Phone: Thin prep Papanicolaou smear with manual screeningon 12-29-2021 Thin prep Papanicolaou smear with manual screening 22 U/L 15-37 [facility] Work Phone: Thin prep Papanicolaou smear with manual screening 0 5-15 [facility] Work Phone: Vital Signs Date Time Vital Sign Value Performing Clinician Faci lity 01-01-2023 09:28-0400 Body height 187.[address] Kinga Patton Work Phone: [facility] 01-01-2023 09:28-0400 Body mass index (BMI) [Ratio] 28.8 kg/m2 Dr. Kinga Patton Work Phone: [facility] 01-01-2023 09:28-0400 Body weight 101.[address] Kinga Patton Work Phone: [facility] 01-01-2023 09:28-0400 Diastolic blood pressure 74 mm[Hg] Dr. Kinga Patton Work Phone: [facility] 01-01-2023 09:28-0400 Heart rate 62 /min Dr. Kinga Patton Work Phone: [facility] 01-01-2023 09:28-0400 Respiratory rate 16 /min Dr. Kinga Patton Work Phone: [facility] 01-01-2023 09:28-0400 Systolic blood pressure 130 mm[Hg] Dr. Kinga Patton Work Phone: [facility] 01-31-2022 08:05-0400 Body height 187.[address] Arsh Archer Work Phone: [facility] Work Phone: 01-31-2022 08:05-0400 Body mass index (BMI) [Ratio] 28 kg/m2 Dr. Arsh Archer Work Phone: [facility] Work Phone: 01-31-2022 08:05-0400 Body temperature 97.2 [degF] Dr. Arsh Archer Work Phone: [facility] Work Phone: 01-31-2022 08:05-0400 Body weight 99.[address] Arsh Archer Work Phone: [facility] Work Phone: 01-31-2022 08:05-0400 Diastolic blood pressure 72 mm[Hg] Dr. Arsh Archer Work Phone: [facility] Work Phone: 01-31-2022 08:05-0400 Heart rate 55 /min Dr. Arsh Archer Work Phone: [facility] Work Phone: 01-31-2022 08:05-0400 Respiratory rate 14 /min Dr. Arsh Archer Work Phone: [facility] Work Phone: 01-31-2022 08:05-0400 SaO2% (BldA) [Mass fraction] 99 % Dr. Arsh Archer Work Phone: [facility] Work Phone: 01-31-2022 08:05-0400 Systolic blood pressure 114 mm[Hg] Dr. Arsh Archer Work Phone: [facility] Work Phone: 11-30-2021 08:23-0500 Body height 187.[address] Arsh Archer Work Phone: [facility] Work Phone: 11-30-2021 08:23-0500 Body weight 100.[address] Arsh Archer Work Phone: [facility] Work Phone: 11-30-2021 08:23-0500 Diastolic blood pressure 75 mm[Hg] Dr. Arsh Archer Work Phone: [facility] Work Phone: 11-30-2021 08:23-0500 Heart rate 66 /min Dr. Arsh Archer Work Phone: [facility] Work Phone: 11-30-2021 08:23-0500 Respiratory rate 14 /min Dr. Arsh Archer Work Phone: [facility] Work Phone: 11-30-2021 08:23-0500 Systolic blood pressure 128 mm[Hg] Dr. Arsh Archer Work Phone: [facility] Work Phone: 11-30-2020 15:03-0500 Body mass index (BMI) [Ratio] 27.4 kg/m2 Dr. Arsh Archer Work Phone: [facility] Work Phone: Encounters Encounter Date Encounter Type Care Provider Facility Start: 06-22-2024 End: 06-23-2024 ambulatory Kinga Patton Facility:[facility] Start: 01-01-2023 End: 01-01-[address] Kinga Patton Work Phone: [facility] Work Phone: Start: 01-01-2023 End: 01-01-[address] Kinga Patton Work Phone: [facility] Start: 02-02-2022 End: 02-02-[address] Arsh Archer Work Phone: [facility] [place] Start: 01-31-2022 End: 01-31-[address] Arsh Archer Work Phone: [facility] Start: 12-29-2021 End: 12-29-[address] Arsh Archer Work Phone: [facility] Start: 11-30-2021 End: 11-30-[address] Arsh Archer Work Phone: [facility] Immunizations Immunization Date Immunization Notes Care Provider Fa [facility] 10-02-2014 tetanus toxoid, redu yaneth diphtheria toxoid, and acellular pertussis vaccine, adsorbed Dr. Arsh Archer Work Phone: [facility] Payers Date Payer Category Payer Self-pay [id number] 2024 Unknown [id number] Unknown [id number] Unknown [id number] Social History Date Type Detail Facility Start: 11-30-2021 End: 01-01-2023 Tobacco smoking status NHIS Unknown if ever smoked [facility] Start: 1965 Sex Assigned At Male W [facility] Evaluation note Note Date & Type Note Facility Evaluation note Diagnosis Onset Date Family history of coronary arteriosclerosis acute Hypertension [facility] [place] Work Phone: Evaluation note Note Date & Type Note Facility Evaluation note Diagnosis Onset Date Family history of coronary arteriosclerosis acute Hypertension chronic BMI 26.0-26.9,adult acute Family history of coronary arteriosclerosis acute Hypertension [facility] [place] Work Phone: Evaluation note Note Date & Type Note Facility Evaluation note Diagnosis Onset Date Essential hypertension chron ic [facility] Work Phone: Chief Complaint and Reason for Visit Chief Complaint 1 Y FU (MOVED FROM [facility]) INT LABS Reason for Visit Family history of co ronary arteriosclerosis Hypertension Chief Complaint 1 Y FU (MOVED FROM [facility]) INT LABS 1 Y FU Reason for Visit Family history of co ronary arteriosclerosis Hypertension BMI 26.0-26.9,adult Family history of coronary arteriosclerosis Hypertension Chief Complaint 1 Y FU E ORDER Reason for Visit Essential hypertensi on Family History No Family History Records Found Relationship Condition Age at Onset Recorded Date/T lanie grandmother Cardiac disease Unknown Myocardial infarction 70 Advance Directives No Advanced Directives Records Found Advance Directive Response Recorded Date/ Time Living Will No June 27, 2021 12:19pm Power of Investigative Assistant No June 12:19pm Summary Purpose Additional Source Comments Goals (unrecognized section and content) Goals may be documented in a n alternate sectionGoals may be documented in an alternate sectionGoals may be documented in an alternate section Care Teams (unrecognized sec tion and content) Team Status: Active Member Role Status Dates Dr. Arsh Archer MD Family Provider Active Dr. Kinga Patton MD Primary Care Provider Active Team Status: Inactive Member Role Status Dates Dr. Kinga Patton MD Primary Care Provider, Referri ng Provider Active Dr. Rick Burgos MD Attending Provider Active Team Status: Inactive Member Role Status Dates Dr. Kinga Patton MD Primary Care Provider Active Dr. Rick Burgos MD Attending Provider, Referring Pro vider Active (unrecognized sect ion and content) No Status Records Found INFORMATION SOURCE (unrecogn ized section and content) DATE CREATED AUTHOR 07/16/2024 [facility] FOR RECORDS PERTAINING TO PATIENTS WHO ARE OR HAVE BEEN ENROLLED IN A CHEMICAL DEPENDENCY/SUBSTANCEABUSE PROGRAM, SOME INFORMATION MAY BE OMITTED. This clinical summary was aggregated from multiple sources. Caution should be exercised in using it in the provision of clinical care. This summary normalizes information from multiple sources, and as a consequence, information in this document may materially change the coding, format and clinical context of patient data. In addition, data may be omitted in some cases. CLINICAL DECISIONS SHOULD BE BASED ON THE PRIMARY CLINICAL RECORDS. [employer] [facility]. provides no warranty or guarantee of the accuracy or completeness of information in this document.
[2025-10-04 11:01] LABS: AST(SGOT) 27 U/L (<=37); Alanine Aminotransfer ALT/SGPT 45 U/L (<=46); Albumin, Serum 4.4 g/dL (3.5-5.0); Alkaline Phosphatase 61 U/L (40-129); Anion Gap 9 (5-15); BUN 23 mg/dL (4-19); BUN/Creat Ratio 17.7 RATIO (10-20); Calcium,Total 9.6 mg/dL (7.6-11.0); Carbon Dioxide 25.7 mmol/L (21.0-32.0); Chloride 106 mmol/L (98-108); Cholesterol 219 mg/dL (<=200); Globulin 2.7 g/dL (2.2-4.2); Glucose 107 mg/dL (70-99); Low Density Lipoprotein Calc. 153 mg/dL; Potassium 4.9 mmol/L (3.3-5.1); Triglycerides 174 mg/dL; Very Low Density Lipoprotein 35 mg/dL (5-40); Vitamin B12 415 pg/mL (180-914); Vitamin D,25 Hydroxy 22.1 ng/mL (30-100); cholesterol:hdl ratio screen 6.40
== END | disposition home or self-care (01) ==
PROVIDERS: PCP Internal Medicine; Referring Provider Internal Medicine; Visit Provider Internal Medicine
DX: Z00.00 Encounter for general adult medical examination without abnormal findings (principal); Z13.220 Encounter for screening for lipoid disorders; I10 Essential (primary) hypertension; E53.8 Deficiency of other specified B group vitamins; E55.9 Vitamin D deficiency, unspecified; R73.9 Hyperglycemia, unspecified
CPT/HCPCS: 36415; 80053; 80061; 82306; 82607; 83036; 84443; 85025